=== PATIENT | female | born 1990 | race Caucasian/White ===

== ENCOUNTER 2016-06-20 22:50 | Emergency (ER) | payer OTHER ==
[~2016-06-20] VITALS: Ht 160 cm; Wt 70.5 kg
[~2016-06-20 22:50] MED LIST: ALBU8.5H IH
[2016-06-20] MEDS ORDERED: KETOROLAC TROMETHAMINE 60 MG/2 ML VIAL IM ONE (23:30)
[2016-06-20] MEDS ORDERED: METHOCARBAMOL 750 MG TABLET PO ONE (23:30)
[2016-06-20] MEDS ORDERED: METHOCARBAMOL 500 MG TABLET PO ONE (23:30)
[2016-06-21 00:13] VITALS: BP 111/68
== END 2016-06-21 00:20 | disposition home or self-care (01) ==
LOC: EMS 22:52
DX: G89.29 Other chronic pain (principal); M54.5 Low back pain; J45.909 Unspecified asthma, uncomplicated
CPT/HCPCS: 96372; 99283; J1885

== ENCOUNTER 2017-03-19 17:46 | Emergency (ER) | payer OTHER ==
[~2017-03-19] VITALS: Ht 160 cm; Wt 70.5 kg
[~2017-03-19 17:46] MED LIST changes: -ALBU8.5H IH; +ALBU8.5H8 IH
[2017-03-19] MEDS ORDERED: ACETAMINOPHEN 500 MG TABLET ONE (17:56)
[2017-03-19] MEDS ORDERED: ACETAMINOPHEN 500 MG TABLET PO ONE (18:00)
[2017-03-19] MEDS ORDERED: IBUPROFEN 600 MG TABLET PO ONE (19:30)
[2017-03-19] MEDS ORDERED: SODIUM CHLORIDE 0.9% 1,000 ML IV ONE ×2 (19:30→21:00)
[2017-03-19 20:09] LABS: INFLUENZA TYPE A POSITIVE FOR TYPE A (NEGATIVE); INFLUENZA TYPE B NEGATIVE FOR TYPE B (NEGATIVE)
[2017-03-19 21:35] VITALS: BP 111/62
== END 2017-03-19 21:46 | disposition home or self-care (01) ==
LOC: EMS 17:48
DX: J11.1 Influenza due to unidentified influenza virus with other respiratory manifestations (principal); M79.1 Myalgia; J45.909 Unspecified asthma, uncomplicated
CPT/HCPCS: 71010; 87804; 96360; 96361; 99285; J7030

== ENCOUNTER 2017-10-22 21:14 | Emergency (ER) | payer OTHER ==
[~2017-10-22] VITALS: Ht 160 cm; Wt 8.6 kg
[2017-10-22 22:00] VITALS: BP 128/88
[2017-10-22] MEDS ORDERED: PERTUSS(ACELL),DIPH,TET VAC/PF 0.5 ML VIAL IM ONE (22:00)
== END 2017-10-22 22:43 | disposition home or self-care (01) ==
LOC: EMS 21:15
DX: S01.112A Laceration without foreign body of left eyelid and periocular area, initial encounter (principal); R03.0 Elevated blood-pressure reading, without diagnosis of hypertension; J45.909 Unspecified asthma, uncomplicated; W25.XXXA Contact with sharp glass, initial encounter; Y93.89 Activity, other specified; Y92.89 Other specified places as the place of occurrence of the external cause; Y99.8 Other external cause status
CPT/HCPCS: 12011; 90471; 90715; 99283